=== PATIENT | female | born 1965 | race Caucasian/White ===

== ENCOUNTER → 2021-08-29 | Outpatient (CLI) | payer OTHER | LOC: KOH-I 10:42 | DX: R06.00 Dyspnea, unspecified (principal) | CPT/HCPCS: 71046 ==

== ENCOUNTER → 2021-09-30 | Outpatient (CLI) | payer OTHER | LOC: KOH-I 13:20 | DX: F17.210 Nicotine dependence, cigarettes, uncomplicated (principal) | CPT/HCPCS: 71271 ==